=== PATIENT | male | born 2000 | race Two or more races ===

== ENCOUNTER 2022-10-13 16:57 | Emergency (ER) | payer SELFPAY ==
[~2022-10-13] VITALS: Ht 182.9 cm; Wt 161.9 kg
[2022-10-13 18:16] VITALS: BP 134/96
[2022-10-13] MEDS ORDERED: HYDR50CA PO (19:04)
== END 2022-10-13 19:10 | disposition home or self-care (01) ==
LOC: ER 17:03
DX: F41.9 Anxiety disorder, unspecified (principal)
CPT/HCPCS: 82962